=== PATIENT | female | born 1995 | race Caucasian/White ===

== ENCOUNTER 2020-02-22 07:38 | Inpatient (IN) | payer MEDICAID, OTHER ==
[~2020-02-22] VITALS: Ht 165.1 cm; Wt 58.7 kg
[2020-02-22] MEDS ORDERED: PALI1.5T2 PO (08:16)
[2020-02-22] MEDS ORDERED: LAMO100T66 PO (08:16)
[2020-02-22 08:57] LABS: BASOPHILS % (AUTO) 0.5 % (0.0-2.0); EOSINOPHILS % (AUTO) 0.2 % (1.0-6.0); HEMATOCRIT 42.1 % (36-46); HEMOGLOBIN 14.5 g/dL (12.0-16.0); LYMPHOCYTES # (AUTO) 1.1 K/uL (1.0-4.8); LYMPHOCYTES % (AUTO) 13.7 % (22.0-44.0); MEAN CORPUSCULAR HGB CONC 34.5 G/dL (31.0-37.0); MEAN CORPUSCULAR VOLUME 93 fL (80-100); MONOCYTES # (AUTO) 0.8 K/uL (0.1-1.0); MONOCYTES % (AUTO) 10.1 % (2.0-9.0); NEUTROPHILS # (AUTO) 6.3 K/uL (1.8-7.7); NEUTROPHILS % (AUTO) 75.5 % (40.0-70.0); PLATELET COUNT (AUTO) 355 K/uL (150-450); RED BLOOD CELL COUNT(AUTO) 4.53 MIL/uL (4.00-5.20); RED CELL DISTRIBUTION WIDTH 13.6 % (11.5-14.5)
[2020-02-22 09:08] LABS: ANION GAP 14 mmol/L (8-16); CALCIUM, TOTAL 9.5 mg/dL (8.8-10.5); CARBON DIOXIDE 23 mmol/L (22-29); CHLORIDE 101 mmol/L (98-107); CREATININE 0.59 mg/dL (0.60-1.30); GLOMERULAR FILTR. RATE CALC > 60 mL/min (>60); GLUCOSE,RANDOM 102 mg/dL (70-110); POTASSIUM 3.8 mmol/L (3.5-5.1); SODIUM SERUM 138 mmol/L (136-145); UREA NITROGEN, BLOOD 12 mg/dL (7-18)
[2020-02-22 09:15] LABS: ALANINE AMINOTRANSFERASE 17 U/L (12-78); ALBUMIN 4.8 g/dL (3.4-5.0); ALKALINE PHOSPHATASE 44 U/L (46-116); ASPARTATE AMINOTRANSFERASE 15 U/L (15-37); TOTAL PROTEIN, SERUM 8.3 g/dL (6.4-8.2)
[2020-02-22] MEDS ORDERED: LORazepam 2 MG/ML VIAL IM ONE (10:00)
[2020-02-22] MEDS ORDERED: DiphenhydrAMINE HCL 50 MG/ML VIAL IM ONE (10:00)
[2020-02-22] MEDS ORDERED: HALOPERIDOL LACTATE 5 MG/ML VIAL IM ONE (10:00)
[2020-02-22 10:28] LABS: AMPHET/METH SCREEN,URINE NEGATIVE (NEGATIVE); BARBITURATE SCREEN, URINE NEGATIVE (NEGATIVE); BENZODIAZEPINES SCREEN,URINE NEGATIVE (NEGATIVE); CANNABINOID SCREEN,URINE POSITIVE (NEGATIVE); COCAINE SCREEN,URINE NEGATIVE (NEGATIVE); METHADONE SCREEN, URINE NEGATIVE (NEGATIVE); OPIATE SCREEN,URINE NEGATIVE (NEGATIVE); PHENCYCLIDINE SCREEN,URINE NEGATIVE (NEGATIVE)
[2020-02-22] MEDS ORDERED: ZOLPIDEM TARTRATE 10 MG TABLET PO PRN (11:30)
[2020-02-22] MEDS ORDERED: HALOPERIDOL 5 MG TABLET PO PRN (11:30)
[2020-02-22 13:26] VITALS: BP 111/62
[2020-02-22] MEDS ORDERED: PNEUMOCOCCAL VACCINE POLYVALENT 0.5 ML VIAL [PPSV23] IM ONE (15:00)
[2020-02-22 16:00] VITALS: BP 120/67
[2020-02-22] MEDS ORDERED: CloNIDine HCL 0.1 MG TABLET PO PRN (20:15)
[2020-02-22] MEDS ORDERED: PETROLATUM,WHITE 28 GM JELLY TP PRN (20:15)
[2020-02-22] MEDS ORDERED: MAG HYDROX/AL HYDROX/SIMETH ES 30 ML SUSPENSION UDCUP PO PRN (20:15)
[2020-02-22] MEDS ORDERED: IBUPROFEN 400 MG TABLET PO PRN (20:15)
[2020-02-22] MEDS ORDERED: NICOTINE 14 MG/24 HOUR PATCH TD PRN (20:15)
[2020-02-22] MEDS ORDERED: ALBUTEROL SULFATE HFA 90 MCG/PUFF 8 GM INHALER IH PRN (20:15)
[2020-02-22] MEDS ORDERED: MAGNESIUM HYDROXIDE SUSPENSION 30 ML UDCUP PO PRN (20:15)
[2020-02-22] MEDS ORDERED: ONDANSETRON HCL 4 MG TABLET PO PRN (20:15)
[2020-02-22] MEDS ORDERED: GuaiFENesin/D-METHORPHAN [SUGAR-FREE] 200-20MG/10 ML SYRUP UDCUP PO PRN (20:15)
[2020-02-22] MEDS ORDERED: ACETAMINOPHEN 325 MG TABLET PO PRN (20:15)
[2020-02-22] MEDS ORDERED: DOCUSATE SODIUM 100 MG CAPSULE PO PRN (20:15)
[2020-02-22] MEDS ORDERED: LOPERAMIDE HCL 2 MG CAPSULE PO PRN (20:15)
[2020-02-23 01:21] VITALS: BP 118/87
[2020-02-23 09:03] LABS: CHOL/HDL RATIO 2.5 (3.9-5.7); THYROID STIMULATING HORMONE 0.63 uIU/mL (0.36-3.74)
[2020-02-23 10:06] VITALS: BP 93/60
[2020-02-23] MEDS: RisperiDONE 1 MG TABLET PO SCH (16:15)
[2020-02-23 16:38] VITALS: BP 132/65
[2020-02-23] MEDS: LamoTRIgine 100 MG TABLET PO SCH (20:01)
[2020-02-24 01:25] VITALS: BP 101/63
[2020-02-24] MEDS: LORazepam 2 MG TABLET PO PRN ×2 (03:44→16:05)
[2020-02-24] MEDS: RisperiDONE 1 MG TABLET PO SCH ×2 (08:41→16:01)
[2020-02-24 09:17] VITALS: BP 108/68
[2020-02-24 16:14] VITALS: BP 110/61
[2020-02-24] MEDS: LamoTRIgine 100 MG TABLET PO SCH (20:13)
[2020-02-25 02:45] VITALS: BP 110/62
[2020-02-25 06:57] VITALS: BP 108/65
[2020-02-25] MEDS: LORazepam 2 MG TABLET PO PRN (07:00)
[2020-02-25] MEDS: RisperiDONE 1 MG TABLET PO SCH (08:16)
[2020-02-25 08:31] VITALS: BP 103/61
[2020-02-25] MEDS ORDERED: LAMO100 PO (11:27)
[2020-02-25] MEDS ORDERED: RISP1 PO (11:27)
== END 2020-02-25 13:35 | disposition home or self-care (01) | DRG 750 ==
LOC: EMS 07:45 → B2S 12:07
PROVIDERS: ADMIT Psychiatry & Neurology Child & Adolescent Psychiatry; ATTEND Psychiatry & Neurology Child & Adolescent Psychiatry
DX: F25.0 Schizoaffective disorder, bipolar type (principal); I95.9 Hypotension, unspecified; F10.10 Alcohol abuse, uncomplicated; F12.90 Cannabis use, unspecified, uncomplicated; F19.10 Other psychoactive substance abuse, uncomplicated; F41.9 Anxiety disorder, unspecified; Y90.9 Presence of alcohol in blood, level not specified; Z28.21 Immunization not carried out because of patient refusal
CPT/HCPCS: 84443; G0480; J1200; J1630; J2060